=== PATIENT | female | born 2005 | race Caucasian/White ===

== ENCOUNTER 2023-10-04 05:57 | Emergency (ER) | payer BC ==
[2023-10-04 06:12] LABS: BASOPHILS ABSOLUTE AUTO 0.01 K/uL (0.00-0.30); BASOPHILS PERCENT AUTO 0.1 % (0.0-1.0); EOSINOPHILS ABSOLUTE AUTO 0.08 K/uL (0.00-0.70); EOSINOPHILS PERCENT AUTO 1.1 % (0.0-5.0); HEMATOCRIT 36.6 % (37.0-47.0); HEMOGLOBIN 12.1 g/dL (12.0-16.0); IMMATURE GRAN ABSOLUTE AUTO 0.02 K/uL (0.00-0.05); IMMATURE GRAN PERCENT AUTO 0.3 % (0.0-0.4); LYMPHOCYTES ABSOLUTE AUTO 0.62 K/uL (2.00-8.80); LYMPHOCYTES PERCENT AUTO 8.5 % (50.0-65.0); MEAN CORPUSCULAR HEMOGLOBIN 27.6 pg (28.0-32.0); MEAN CORPUSCULAR HGB CONC 33.1 g/dL (32.0-36.0); MEAN CORPUSCULAR VOLUME 83.4 fL (83.0-99.0); MEAN PLATELET VOLUME 9.8 fL (9.4-12.3); MONOCYTES ABSOLUTE AUTO 0.73 K/uL (0.10-1.40); NEUTROPHILS ABSOLUTE AUTO 5.87 K/uL (1.50-8.50); PLATELET COUNT,PLT 230 K/uL (150-400); RED BLOOD CELL COUNT 4.39 M/uL (4.10-5.30); WHITE BLOOD CELL COUNT,WBC 7.33 K/uL (4.5-13.5)
[2023-10-04] MEDS: Sodium Chloride 0.9% 1,000 ML IV ONE (06:20)
[2023-10-04] MEDS: Ondansetron 4 MG/2 ML SDV IVPUSH ONE (06:20)
[2023-10-04] MEDS: Sodium Chloride 0.9% 10 ML Syringe FLUSH PRN (06:20)
[2023-10-04] MEDS: Famotidine 20 MG/2 ML SDV IVPUSH ONE (06:20)
[2023-10-04] MEDS: Sodium Chloride 0.9% 2.5 ML Syringe FLUSH PRN (06:21)
[2023-10-04 06:34] LABS: A/G RATIO 1.1 (0.9-1.6); ALBUMIN 3.8 g/dL (3.4-5.0); BILIRUBIN TOTAL 0.9 mg/dL (0.2-1.0); CALCIUM 8.6 mg/dL (8.5-10.1); CARBON DIOXIDE,CO2 25.3 mmol/L (21.0-32.0); CREATININE 0.8 mg/dL (0.6-1.0); EST CRCL DRUG DOSING (CG) 105.89 mL/min; POTASSIUM,K 3.9 mmol/L (3.5-5.1); PROTEIN TOTAL,TP 7.2 g/dL (6.4-8.2)
== END 2023-10-04 07:53 | disposition home or self-care (01) ==
LOC: MW.ED 05:57
DX: R10.84 Generalized abdominal pain (principal); R11.2 Nausea with vomiting, unspecified; R19.7 Diarrhea, unspecified; E86.0 Dehydration
CPT/HCPCS: 36415; 80053; 83690; 84703; 85025; 96361; 96374; 96375; 99284; J2405; J3490; J7030

== ENCOUNTER 2023-10-04 15:44 | Emergency (ER) | payer BC ==
[2023-10-04 17:19] LABS: BASOPHILS ABSOLUTE AUTO 0.02 K/uL (0.00-0.30); BASOPHILS PERCENT AUTO 0.4 % (0.0-1.0); HEMATOCRIT 37.1 % (37.0-47.0); HEMOGLOBIN 12.4 g/dL (12.0-16.0); IMMATURE GRAN ABSOLUTE AUTO 0.01 K/uL (0.00-0.05); IMMATURE GRAN PERCENT AUTO 0.2 % (0.0-0.4); LYMPHOCYTES ABSOLUTE AUTO 0.42 K/uL (2.00-8.80); LYMPHOCYTES PERCENT AUTO 8.1 % (50.0-65.0); MEAN CORPUSCULAR HEMOGLOBIN 27.6 pg (28.0-32.0); MEAN CORPUSCULAR HGB CONC 33.4 g/dL (32.0-36.0); MEAN CORPUSCULAR VOLUME 82.4 fL (83.0-99.0); MEAN PLATELET VOLUME 10.2 fL (9.4-12.3); MONOCYTES ABSOLUTE AUTO 0.59 K/uL (0.10-1.40); MONOCYTES PERCENT AUTO 11.4 % (2.0-10.0); NEUTROPHILS ABSOLUTE AUTO 4.14 K/uL (1.50-8.50); NEUTROPHILS PERCENT AUTO 79.9 % (35.0-45.0); PLATELET COUNT,PLT 266 K/uL (150-400); WHITE BLOOD CELL COUNT,WBC 5.18 K/uL (4.5-13.5)
[2023-10-04] MEDS: Sodium Chloride 0.9% 1,000 ML IV ONE (17:37)
[2023-10-04 17:51] LABS: A/G RATIO 1.1 (0.9-1.6); ALBUMIN 3.6 g/dL (3.4-5.0); BILIRUBIN TOTAL 1.1 mg/dL (0.2-1.0); CALCIUM 8.5 mg/dL (8.5-10.1); CARBON DIOXIDE,CO2 22.3 mmol/L (21.0-32.0); CREATININE 0.8 mg/dL (0.6-1.0); EST CRCL DRUG DOSING (CG) 105.89 mL/min; POTASSIUM,K 3.5 mmol/L (3.5-5.1)
[2023-10-04] MEDS: Ondansetron 4 MG/2 ML SDV IVPUSH ONE (18:44)
[2023-10-04 19:05] LABS: CORONAVIRUS COVID-19 NAA NEGATIVE (NEGATIVE); INFLUENZA A NAA NEGATIVE (NEGATIVE); INFLUENZA B NAA NEGATIVE (NEGATIVE)
== END 2023-10-04 20:46 | disposition home or self-care (01) ==
LOC: MW.ED 15:44
DX: K52.9 Noninfective gastroenteritis and colitis, unspecified (principal); Z75.8 Other problems related to medical facilities and other health care; Z79.899 Other long term (current) drug therapy; Z90.49 Acquired absence of other specified parts of digestive tract
CPT/HCPCS: 0240U; 36415; 74176; 80053; 83690; 85025; 96361; 96374; 99284; J2405; J7030